=== PATIENT | male | born 1970 | race American Indian/Alaskan Native ===

== ENCOUNTER 2019-07-25 10:30 | Emergency (ER) | payer SELFPAY ==
--- NOTE | 2019-07-25 12:10 | Emergency Department Report ---
ED General Adult HPI - General Chief complaint: Headache Stated complaint: FEELING SICK Time Seen by Provider: 07/25/19 11:31 Source: patient Mode of arrival: Ambulatory Limitations: No Limitations - History of Present Illness Initial comments: 49-year-old -[place]ian male patient without significant past medical history presents with complaints of generalized body aches and cough 3 days. He states cough is productive of green sputum. He also reports wheezing last night. He states [place] cold plus help some with his symptoms. He denies any fever, hemoptysis, shortness of breath, chest pain, or nausea/vomiting/diarrhea. -: Sudden - Related Data Previous Rx's Medication Instructions Recorded Last Taken Type Benzonatate 200 mg PO TID PRN #30 capsule 07/25/19 Unknown Rx Ibuprofen [Motrin 800 MG tab] 800 mg PO Q8HR PRN #20 tablet 07/25/19 Unknown Rx Allergies Allergy/AdvReac Type Severity Reaction Status Date / Time No Known Allergies Allergy Unverified 06/23/16 13:02 ED Review of Systems ROS: Stated complaint: FEELING SICK Other details as noted in HPI Constitutional: chills, malaise ENT: denies: throat pain Respiratory: cough. denies: shortness of breath Cardiovascular: denies: chest pain, palpitations Gastrointestinal: diarrhea (now resolved). denies: nausea, vomiting Musculoskeletal: back pain, myalgia Skin: denies: rash, lesions Neurological: headache ED Past Medical Hx - Past Medical History Previous Medical History?: No - Surgical History Past Surgical History?: No - Social History Smoking Status: Never Smoker Substance Use Type: None - Medications Home Medications: Home Medications Medication Instructions Recorded Confirmed Last Taken Type Benzonatate 200 mg PO TID PRN #30 capsule 07/25/19 Unknown Rx Ibuprofen [Motrin 800 MG tab] 800 mg PO Q8HR PRN #20 tablet 07/25/19 Unknown Rx ED Physical Exam - General Limitations: No Limitations General appearance: alert, in no apparent distress - Head Head exam: Present: atraumatic, normocephalic - Eye Eye exam: Present: normal appearance, PERRL. Absent: scleral icterus - ENT ENT exam: Present: mucous membranes moist - Neck Neck exam: Present: normal inspection, full ROM. Absent: tenderness - Respiratory Respiratory exam: Present: rhonchi (left lower lung lobe). Absent: respiratory distress, wheezes, rales, chest wall tenderness, accessory muscle use - Cardiovascular Cardiovascular Exam: Present: regular rate, normal rhythm. Absent: systolic murmur, diastolic murmur, rubs, gallop - GI/Abdominal GI/Abdominal exam: Present: soft, normal bowel sounds. Absent: tenderness - Extremities Exam Extremities exam: Present: normal inspection - Back Exam Back exam: Present: normal inspection. Absent: paraspinal tenderness, vertebral tenderness - Neurological Exam Neurological exam: Present: alert, oriented X3, normal gait - Psychiatric Psychiatric exam: Present: normal affect, normal mood - Skin Skin exam: Present: warm, dry, intact, normal color. Absent: rash ED Course Vital Signs 07/25/19 07/25/19 10:47 10:50 Temperature 99.5 F 99.5 F Pulse Rate 93 H 72 Respiratory 18 18 Rate Blood Pressure 105/64 105/64 O2 Sat by Pulse 99 98 Oximetry ED Medical Decision Making - Radiology Data Radiology results: report reviewed CHEST 2 VIEWS INDICATION: cough, abnormal breath sound LLL. COMPARISON: None FINDINGS: Support devices: None. Heart: Within normal limits. Lungs/pleura: No acute air space or interstitial disease. No pneumothorax. Additional findings: None. IMPRESSION: No acute findings. - Medical Decision Making 49-year-old -Romanian male patient without significant past medical history presents with complaints of generalized body aches and cough 3 days. He denies any red flag symptoms. Chest x-ray is negative for infection. Vitals are normal. Patient is stable for discharge home in treatment for viral syndrome. Recommend follow-up with his PCP. Discussed strict return precautions in detail with patient who verbalizes understanding Critical care attestation.: If time is entered above; I have spent that time in minutes in the direct care of this critically ill patient, excluding procedure time. ED Disposition Clinical Impression: Viral syndrome Disposition: DC-01 TO HOME OR SELFCARE Is pt being admited?: No Condition: Stable Instructions: Viral Syndrome (ED) Prescriptions: Benzonatate 200 mg PO TID PRN #30 capsule PRN Reason: Cough Ibuprofen [Motrin 800 MG tab] 800 mg PO Q8HR PRN #20 tablet PRN Reason: Analgesia Referrals: PRIMARY CARE,MD [Primary Care Provider] - 3-5 Days Forms: Work/School Release Form(ED)
--- NOTE | 2019-07-25 14:11 | XRay Report ---
CHEST 2 VIEWS INDICATION: cough, abnormal breath sound LLL. COMPARISON: None FINDINGS: Support devices: None. Heart: Within normal limits. Lungs/pleura: No acute air space or interstitial disease. No pneumothorax. Additional findings: None. IMPRESSION: No acute findings. Signer Name: Soham Rothman Jr, MD Signed: 07/25/2019 2:06 PM Workstation Name: [id number]
[2019-07-25 15:04] VITALS: BP 111/69
== END 2019-07-25 15:04 | disposition home or self-care (01) ==
LOC: ED 10:30
DX: B34.9 Viral infection, unspecified (principal); Z79.899 Other long term (current) drug therapy
CPT/HCPCS: 71046